=== PATIENT | female | born 2000 | race Caucasian/White ===

== ENCOUNTER → 2020-06-20 | Outpatient (CLI) | payer OTHER ==
--- NOTE | 2020-06-23 21:39 | CT ---
EXAMINATION TYPE: CT abdomen pelvis wo/w con DATE OF EXAM: 06/22/2020 COMPARISON: NONE HISTORY: 20-year-old female R10.33, periumbilical pain TECHNIQUE: Contiguous axial scanning of the abdomen and pelvis before and after administration of 100 ml Omnipaque 300 IV contrast. Delayed images through the kidneys and coronal/sagittal reconstructio ns performed. CT DLP: 470 mGycm Automated exposure control for dose reduction was used. FINDINGS: Heart normal size without pericardial effusion. Lung bases clear without pleural effusion. Possible 2.2 cm oval right breast mass within the lower inner quadrant. Further ultrasound evaluation is recommended. No focal liver lesion or biliary ductal portal venous system is patent. Gallbladder, adrenal glands, kidneys, spleen, and pancreas appear within normal limits. No dilated small bowel, free fluid, free air. Numerous borderline size mesenteric lymph nodes throughout the abdomen measuring up to 7 mm. Tiny fatty umbilical hernia. Oral contrast has progressed to the rectum. There is moderate stool within the mid to distal sigmoid colon. No pericolonic inflammatory change. Normal contrast opacified appendix is noted. Bladder urine distended. Uterus anteverted. A crenulated, peripherally enhancing 2.0 cm cystic lesion of the left ovary suggestive of a corpus luteum. Right ovary is visualized. There is trace cul-de-sa c free fluid noted. In addition, there is mild free fluid within the anterior right adnexa. Bones: No osseous destructive process. IMPRESSION: 1. NUMEROUS BORDERLINE SIZED MESENTERIC LYMPH NODES THROUGHOUT THE ABDOMEN MEASURING UP TO 7 MM. FIND INGS MAY REFLECT MESENTERIC ADENITIS. 2. RIGHT BREAST ULTRASOUND RECOMMENDED TO ASSESS FOR A POSSIBLE 2.2 CM OVAL MASS OR CYST OF THE LOWER INNER QUADRANT. 3. SUSPECT A 2.0 CM CORPUS LUTEUM OF THE LEFT OVARY. TRACE CUL-DE-SAC FREE FLUID AND MILD ANTERIOR RI GHT ADNEXAL FREE FLUID PROBABLY PHYSIOLOGIC. THE APPENDIX IS VISUALIZED NORMAL. 4. TINY FATTY UMBILICAL HERNIA.
== END | disposition home or self-care (01) ==
LOC: RADCTMAIN 05-22 17:19
PROVIDERS: ATTEND Internal Medicine Gastroenterology
DX: K42.9 Umbilical hernia without obstruction or gangrene (principal); N83.12 Corpus luteum cyst of left ovary
CPT/HCPCS: 74178; Q9967

== ENCOUNTER 2020-07-30 10:13 | Day surgery (SDC) | payer OTHER ==
[2020-07-26 09:58] VITALS: BMI 25.4
[~2020-07-30 10:13] MED LIST: LACTATED RINGERS 1,000 ML IV SCH
[2020-07-30 11:19] VITALS: RESP 16; TEMP 97
[2020-07-30] MEDS ORDERED: LIDOCAINE 1% (10MG/ML) FOR IV START INTRADERMA ONE (11:21)
[2020-07-30] MEDS ORDERED: LIDOCAINE 1% INJ 10MG/ML (20 ML MDV) ONE (11:33)
[2020-07-30] MEDS ORDERED: PROPOFOL 10 MG/ML 20 ML VIAL IV ONE (11:33)
--- NOTE | 2020-07-30 12:03 | P.PCN ---
Date of Procedure: 07/30/20 Description of Procedure: BRIEF HISTORY: Patient is a 20-year-old female presenting for colonoscopy for evaluation of change in bowel habits. Patient reports intermittent periumbilical and left for quadrant abdominal pain. Bowel movements typically every 3-4 days however patient will have episodes of intermittent diarrhea with 2-3 loose bowel movements with associated urgency. PROCEDURE PERFORMED: Colonoscopy with biopsy. PREOPERATIVE DIAGNOSIS: Change in bowel habits, abdominal pain. ESTIMATED BLOOD LOSS: Minimal. IV sedation per Anesthesia. PROCEDURE: After informed consent was obtained, the patient, was brought into the endoscopy unit. IV sedation was administered by Anesthesia under continuous monitoring. Digital rectal examination was normal. Initially the Olympus CF-190 flexible video colonoscope was then inserted in the rectum, gradually advanced into the cecum without any difficulty. Careful examination was performed as the scope was gradually being withdrawn. Ileocecal valve and the appendiceal orifice were visualized and appeared normal. Prep was excellent. Mucosa of the cecum, ascending colon, transverse colon, descending colon, sigmoid colon, and rectum appeared normal, with normal-appearing terminal ileum. Random biopsies taken of the right colon, left colon and terminal ileum. Change in bowel habit. Retroflexion was performed in the rectum and no lesions were seen, low-grade internal hemorrhoids. The patient tolerated the procedure well. IMPRESSION: Normal-appearing colon from rectum to cecum and terminal ileum with random biopsies taken of the right colon, left colon and terminal ileum. Change in bowel habits. Internal hemorrhoids. RECOMMENDATIONS: Findings of this examination were discussed with the patient. Okay to resume diet. Okay to resume medications. Await pathology from biopsies. Follow up in the GI clinic as scheduled.
[2020-07-30 13:16] VITALS: BP 119/75; PULSE 74
== END 2020-07-30 13:38 | disposition home or self-care (01) ==
LOC: ORWHC2ENDO 10:13
PROVIDERS: ATTEND Internal Medicine
DX: R19.4 Change in bowel habit (principal); R19.7 Diarrhea, unspecified; K64.8 Other hemorrhoids; R10.33 Periumbilical pain; Z88.6 Allergy status to analgesic agent; Z91.011 Allergy to milk products; Z91.013 Allergy to seafood; Z91.048 Other nonmedicinal substance allergy status; Z79.899 Other long term (current) drug therapy; Z98.890 Other specified postprocedural states; F41.9 Anxiety disorder, unspecified
CPT/HCPCS: 81025; 88305; 45380; J2001; J2704

== ENCOUNTER 2021-02-05 09:16 | Day surgery (SDC) | payer OTHER ==
[2021-02-03 12:40] VITALS: BMI 24.7
[2021-02-05] MEDS ORDERED: LIDOCAINE 1% (10MG/ML) FOR IV START INTRADERMA ONE (10:00)
[2021-02-05 10:07] VITALS: RESP 16; TEMP 98.7
[2021-02-05] MEDS ORDERED: LIDOCAINE 1% INJ 10MG/ML (20 ML MDV) ONE (10:41)
[2021-02-05] MEDS ORDERED: PROPOFOL 10 MG/ML 20 ML VIAL IV ONE (10:41)
--- NOTE | 2021-02-05 10:53 | P.PCN ---
Date of Procedure: 02/05/21 Procedure(s) Performed: BRIEF HISTORY: Patient is a 21-year-old, pleasant, female scheduled for an upper endoscopy as a part of evaluation of epigastric pain for the last 2 years duration. His been on omeprazole 20 mg daily with no help.. PROCEDURE PERFORMED: Esophagogastroduodenoscopy with biopsy. PREOPERATIVE DIAGNOSIS: Chronic epigastric pain. IV sedation per anesthesia. PROCEDURE: After informed consent was obtained, the patient was brought into the endoscopy unit. IV sedation was administered by Anesthesia under continuous monitoring. Initially the Olympus GIF-140 video endoscope was inserted into the mouth. Esophagus intubated without any difficulty. It was gradually advanced into the stomach and duodenum and carefully examined. The bulb and the second part of the duodenum appeared normal. Biopsies were done from the duodenum to rule out celiac disease. The scope at this time was withdrawn to the stomach, adequately insufflated with air, and upon careful examination, mucosa of the antrum, had mild gastritis and biopsies were done from this area. The body, cardia and the fundus appeared normal. The scope was then withdrawn into the esophagus. The GE junction was located at 42 cm from the incisors. The esophagus appeared normal. There were no erosions or ulcerations seen, biopsies were done from this area and the patient tolerated the procedure well. IMPRESSION: 1. Mild antral gastritis. 2. No evidence of esophagitis or peptic ulcer disease. RECOMMENDATIONS: The findings of this examination were discussed with the patient as well as her family. She was advised to follow with the biopsy results and continue with omeprazole 20 mg daily and follow antireflux m easures..
[2021-02-05 11:32] VITALS: BP 113/69; PULSE 68
== END 2021-02-05 11:47 | disposition home or self-care (01) ==
LOC: ORWHC2ENDO 09:16
PROVIDERS: ATTEND Internal Medicine Gastroenterology
DX: K29.50 Unspecified chronic gastritis without bleeding (principal); G89.29 Other chronic pain; M79.7 Fibromyalgia; Z91.013 Allergy to seafood; Z91.041 Radiographic dye allergy status
CPT/HCPCS: 43239; 81025; 88305; J2001; J2704